=== PATIENT | male | born 1990 | race Caucasian/White ===

== ENCOUNTER 2017-12-02 10:35 | Emergency (ER) | payer MEDICAID, SELFPAY ==
[2017-12-02 10:46] VITALS: BP 113/62; PULSE 85; RESP 18; TEMP 36.6; O2SAT 100; BMI 25.8
[2017-12-02 10:56] LABS: UTC Strep Screen (Rapid) Negative (Negative)
--- NOTE | 2017-12-02 11:17 | HMH.EDUTC ---
[facility] [place] Clinical Impression: Upper respiratory infection Qualifiers: URI type: unspecified URI Qualified Code(s): J06.9 - Acute upper respiratory infection, unspecified Disposition: Home, Self-Care Condition on Discharge: Good Instructions: Sore Throat Additional Instructions: * Monitor Temp. Tylenol and/or Ibuprofen as needed. ER if fever is no less than 101 despite alternating Tylenol and Ibuprofen * Encourage fluids, water, Gatorade, powerade, pedialyte if /toddler/or child * Warm salt water gargles for throat irritation *Warm fluids *Sore throat lozenges *Sleep elevated *humidifier or vaporizer Lots of rest Increase fluids, water, Gatorade, powerade *Your throat swab was sent to lab for culture. Those results area typically sent to your primary care physician. Be sure to follow up in 2-3 days if no improvement so they can review those results and treat if necessary If you dont have primary care I recommend you get one, but in the mean time you will have to return to a walk in clinic Follow up IMMEDIATELY for new or worsening of symptoms OR no noticeable improvement over the next 48-72 hours. 911 immediately for any life threatening symptoms such as chest pain or difficulty breathing Prescriptions: Azithromycin [Z-Kenneth 250mg Tab] 250 mg PO UD DOSE PK #6 tab predniSONE [Prednisone 5mg Tab Dose-Pack] 5 mg PO UD DOSE PK #21 pack Forms: Work/School Release Time of Disposition: 11:39 Medical Decision Making - Medical Records Medical records reviewed: Yes: I reviewed the patient's medical records. - Jose Inquiry Pt receiving controlled substance: No Jose was queried for this patient: No Vital Signs: 12/02/17 10:46 Temperature 97.9 F Temperature Source Temporal Artery Scan Pulse Rate [Right] 85 Respiratory Rate 18 Blood Pressure [Right Arm] 113/62 Blood Pressure Mean [Right Arm] 79 Blood Pressure Source [Right Arm] Automatic Cuff Blood Pressure Position [Right Arm] Sitting 02 Sat by Pulse Oximetry 100 Oxygen Delivery Method Room Air - Lab Data Lab results reviewed: Yes: I reviewed the patient's lab results. Lab Results 12/02/17 10:50: Strep Scn Rapid Clinic Negative Orders (Tests/Meds): ORDERS Category Date Time Status Strep Screen Confirmation Stat Micro 12/02/17 10:50 Received [facility] [place] - General Stated complaint: Sore Throat Time Seen by Provider: 12/02/17 11:17 Mode of Arrival: Ambulatory Source of Information: Patient Limitations: No Limitations Description of Symptoms (Recalled from Triage Doc. by RN): SORE THROAT HEENT Symptoms (Recalled from RN notes): Yes Resp Symptoms (Recalled from RN notes): No Skin Symptoms (Recalled from RN notes): No MS Symptoms (Recalled from RN notes): No Functional Status (Recalled from RN notes): N - History of Present Illness Provider Complaint: Patient state that he has been having sore throat now for several days and thinks he may have strep throat State that he notice a white patchy area this morning on the left side of his throat and his father told him that he will do that with strep throat and he needed to be seen - Related Data Previous Rx's Medication Instructions Recorded Azithromycin [Z-Kenneth 250mg Tab] 250 mg PO UD DOSE PK #6 tab 12/02/17 predniSONE [Prednisone 5mg Tab 5 mg PO UD DOSE PK #21 pack 12/02/17 Dose-Pack] Allergies Allergy/AdvReac Type Severity Reaction Status Date / Time No Known Allergies Allergy Verified 12/02/17 10:50 - Worker's Comp Is this a Worker's Comp case?: No H History I have reviewed the patient's past medical history: Yes - Social History Smoking Status: Current every day smoker Tobacco Type: cigarettes Alcohol Intake: never - Psychiatric History Expresses thoughts of harming self/others: None Suicide Plan Description: No Plan ROS Obtained: Yes All systems reviewed & no additional complaints - ENT Ears, Nose, Mouth, and Throat: Reports sinus pa
--- NOTE | 2017-12-02 11:24 | ED_ITS ---
[facility] – [place] Disposition Clinical Impression: Upper respiratory infection Qualifiers: URI type: unspecified URI Qualified Code(s): J06.9 - Acute upper respiratory infection, unspecified Disposition: Home, Self-Care Condition on Discharge: Good Instructions: Sore Throat Additional Instructions: * Monitor Temp. Tylenol and/or Ibuprofen as needed. ER if fever is no less than 101 despite alternating Tylenol and Ibuprofen * Encourage fluids, water, Gatorade, powerade, pedialyte if /toddler/or child * Warm salt water gargles for throat irritation *Warm fluids *Sore throat lozenges *Sleep elevated *humidifier or vaporizer Lots of rest Increase fluids, water, Gatorade, powerade *Your throat swab was sent to lab for culture. Those results area typically sent to your primary care physician. Be sure to follow up in 2-3 days if no improvement so they can review those results and treat if necessary If you don? t have primary care I recommend you get one, but in the mean time you will have to return to a walk in clinic Follow up IMMEDIATELY for new or worsening of symptoms OR no noticeable improvement over the next 48-72 hours. 911 immediately for any life threatening symptoms such as chest pain or difficulty breathing Prescriptions: Azithromycin [Z-Kenneth 250mg Tab] 250 mg PO UD DOSE PK #6 tab predniSONE [Prednisone 5mg Tab Dose-Pack] 5 mg PO UD DOSE PK #21 pack Forms: Work/School Release Time of Disposition: 11:39 Medical Decision Making - Medical Records Medical records reviewed: Yes: I reviewed the patient's medical records. - Jose Inquiry Pt receiving controlled substance: No Jose was queried for this patient: No Vital Signs: 12/02/17 10:46 Temperature 97.9 F Temperature Source Temporal Artery Scan Pulse Rate [Right] 85 Respiratory Rate 18 Blood Pressure [Right Arm] 113/62 Blood Pressure Mean [Right Arm] 79 Blood Pressure Source [Right Arm] Automatic Cuff Blood Pressure Position [Right Arm] Sitting 02 Sat by Pulse Oximetry 100 Oxygen Delivery Method Room Air - Lab Data Lab results reviewed: Yes: I reviewed the patient's lab results. Lab Results 12/02/17 10:50: Strep Scn Rapid Clinic Negative Orders (Tests/Meds): ORDERS Category Date Time Status Strep Screen Confirmation Stat Micro 12/02/17 10:50 Received [facility] [place] HPI - General Stated complaint: Sore Throat Time Seen by Provider: 12/02/17 11:17 Mode of Arrival: Ambulatory Source of Information: Patient Limitations: No Limitations Description of Symptoms (Recalled from Triage Doc. by RN): SORE THROAT HEENT Symptoms (Recalled from RN notes): Yes Resp Symptoms (Recalled from RN notes): No Skin Symptoms (Recalled from RN notes): No MS Symptoms (Recalled from RN notes): No Functional Status (Recalled from RN notes): N - History of Present Illness Provider Complaint: Patient state that he has been having sore throat now for several days and thinks he may have strep throat State that he notice a white patchy area this morning on the left side of his throat and his father told him that he will do that with strep throat and he needed to be seen - Related Data Previous Rx's Medication Instructions Recorded Azithromycin [Z-Kenneth 250mg Tab] 250 mg PO UD DOSE PK #6 tab 12/02/17 predniSONE [Prednisone 5mg Tab 5 mg PO UD DOSE PK #21 pack 12/02/17 Dose-Pack]
[2017-12-02 11:46] VITALS: BP 113/62; PULSE 85; RESP 18; TEMP 36.6
== END 2017-12-02 11:47 | disposition home or self-care (01) ==
PROVIDERS: Emergency Provider Nurse Practitioner; Family Provider Internal Medicine Adolescent Medicine
DX: J06.9 Acute upper respiratory infection, unspecified (principal); F17.210 Nicotine dependence, cigarettes, uncomplicated
CPT/HCPCS: 87880; 99201

== ENCOUNTER 2018-02-04 14:49 | Outpatient (CLI) | payer MEDICAID, SELFPAY ==
--- NOTE | 2018-02-04 14:57 | XR_ITS ---
XR hand LT min 3V HISTORY: ITS.REASON: LT HAND PAIN ORDERING PHYSICIAN: Christine Gonzalez PATIENT AGE: 27 years COMPARISON: None FINDINGS: No fracture or dislocation. No lytic or blastic change. There is normal mineralization.. The joint spaces are well-preserved. No significant degenerative/arthritic changes. No erosive changes evident.. IMPRESSION: Negative, no acute finding
--- NOTE | 2018-02-04 14:57 | XR_ITS ---
XR wrist LT min 3V HISTORY ITS.REASON: LT WRIST PAIN ORDERING PHYSICIAN: Christine Gonzalez PATIENT AGE: 27 years Comparison: None FINDINGS: No fracture or dislocation. No lytic or blastic change. There is normal mineralization.. The joint spaces are well-preserved. No significant degenerative/arthritic changes. No erosive changes evident.. IMPRESSION: Negative wrist
--- NOTE | 2018-02-04 14:57 | XR_ITS ---
XR knee RT 3V HISTORY: ITS.REASON: RT ANTERIOR KNEE PAIN ORDERING PHYSICIAN: Christine Gonzalez PATIENT AGE: 27 years COMPARISON: FINDINGS: No fracture or dislocation. No lytic or blastic change. Normal mineralization. No significant arthritic changes evident. No other significant findings IMPRESSION: Negative Knee
--- NOTE | 2018-02-04 14:57 | XR_ITS ---
XR hand RT min 3V HISTORY: ITS.REASON: RT HAND PAIN ORDERING PHYSICIAN: Christine Gonzalez PATIENT AGE: 27 years COMPARISON: None FINDINGS: No fracture or dislocation. No lytic or blastic change. There is normal mineralization.. The joint spaces are well-preserved. No significant degenerative/arthritic changes. No erosive changes evident.. IMPRESSION: Negative, no acute finding
[2018-02-04 15:45] VITALS: BP 124/68; PULSE 69; RESP 20; TEMP 36.6; O2SAT 99
== END 2018-02-04 16:04 | disposition home or self-care (01) ==
LOC: LAB 14:52 → INF 14:54
PROVIDERS: PCP Nurse Practitioner Family; Visit Provider Nurse Practitioner Family
DX: M25.532 Pain in left wrist (principal); M79.641 Pain in right hand; M79.642 Pain in left hand; M25.561 Pain in right knee
CPT/HCPCS: 73110; 73130; 73562; 90715; 96372

== ENCOUNTER → 2021-04-27 12:42 | Outpatient (CLI) | payer OTHER, SELFPAY ==
--- NOTE | 2021-04-27 12:43 | CT_ITS ---
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 All CT scans at the facility use one or more dose reduction, viz: automated exposure control, ma/kV adjustment per patient size (including targeted exams where dose is matched to indication, i.e. head), or iterative reconstruction technique. FINDINGS: There is a CIGARETTE PACKING MACHINE OPERATOR shunt present in the right parietal region extending into the posterior aspect of the right lateral ventricle body. There are no previous exams available for comparison. There is mild prominence of the lateral ventricles including the temporal horns. The 3rd and 4th ventricle has an unremarkable appearance. 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 No midline shift or mass effect. No acute intracranial hemorrhage. No mastoid effusion. There is mild mucosal thickening of the ethmoid sinuses IMPRESSION: Right CIGARETTE PACKING MACHINE OPERATOR shunt in place. 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 No previous studies available for comparison. Agenesis of the corpus callosum. Dictated by: Chip Mason MD 04/27/2021 18:01 Chip Mason MD in [place] 04/27/2021 18:01
== END ==
PROVIDERS: PCP Internal Medicine Adolescent Medicine; Visit Provider Specialist
DX: R41.3 Other amnesia (principal); Z98.2 Presence of cerebrospinal fluid drainage device
CPT/HCPCS: 70450

== ENCOUNTER → 2021-04-28 12:14 | Outpatient (CLI) | payer OTHER, SELFPAY ==
[2021-04-28 12:48] LABS: Basophils # 0.1 K/mm3 (0-0.2); Basophils % 0.9 % (0.1-2.0); Eosinophils # 0.5 K/mm3 (0.0-0.4); Eosinophils % 5.6 % (0.1-12.0); Hematocrit 47.1 % (42.0-52.0); Hemoglobin 16.1 g/dL (14.1-18.0); Lymphocytes # 1.9 K/mm3 (0.7-4.5); Lymphocytes % 21.4 % (10-50); Mean Corpuscular HGB Conc 34.2 g/dL (31.8-35.4); Mean Corpuscular Hemoglobin 30.8 pg (27.0-31.2); Mean Corpuscular Volume 89.9 fl (80-94); Mean Platelet Volume 8.7 fl (7.4-10.4); Monocytes # 0.4 K/mm3 (0.1-1.0); Monocytes % 4.6 % (1.7-9.3); Neutrophils # 6.1 K/mm3 (1.8-7.8); Neutrophils % 67.5 % (37.0-80.0); Platelet Count 230 K/mm3 (142-424); Red Blood Count 5.23 M/mm3 (4.60-6.20); Red Cell Distribution Width 13.1 % (11.5-17.5); White Blood Count 9.1 K/mm3 (4.8-10.8)
[2021-04-28 13:32] LABS: Erythrocyte Sedimentation Rate 4 mm/hr (0-15)
[2021-04-28 13:37] LABS: Alanine Aminotransferase 39 U/L (12-78); Albumin Level 4.4 g/dl (3.5-5.0); Albumin/Globulin Ratio 1.6 (1.1-1.8); Alkaline Phosphatase 82 U/L (38-126); Anion Gap 13.9 mEq/L (5-15); Aspartate Amino Transferase 34 U/L (17-59); Bilirubin,Total 0.5 mg/dl (0.2-1.3); Blood Urea Nitrogen 22 mg/dl (9-20); Calcium 9.2 mg/dl (8.4-10.2); Carbon Dioxide 23 mmol/L (22.0-30.0); Chloride 107 mmol/L (98-107); Estimated Glomerular Filt Rate 79 ml/min (>60); GFR (African American) 95 ML/MIN (>60); Globulin 2.7 g/dL (1.3-3.2); Glucose 124 mg/dl (74-100); Potassium 3.9 mmoL/L (3.5-5.1); Sodium 140 mmol/L (136-145); Total Protein,Serum 7.1 g/dl (6.3-8.2)
[2021-04-28 14:47] LABS: Folate 7.02 ng/mL
[2021-04-29 21:04] LABS: Anti-Centromere B Antibodies <0.2 AI (0.0-0.9); Anti-DNA (DS) Ab Qn <1 IU/mL (0-9); Anti-Jo-1 <0.2 AI (0.0-0.9); Anti-Smith Antibody <0.2 AI (0.0-0.9); Antichromatin Antibodies <0.2 AI (0.0-0.9); Antiscleroderma-70 Antibodies <0.2 AI (0.0-0.9); RNP Antibodies <0.2 AI (0.0-0.9); Sjogren's Anti-SS-A <0.2 AI (0.0-0.9); Sjogren's Anti-SS-B <0.2 AI (0.0-0.9)
[2021-05-16 10:47] LABS: Antinuclear Antibodies (ANA) NEGATIVE
== END ==
PROVIDERS: Visit Provider Specialist
DX: R41.3 Other amnesia (principal); Z98.2 Presence of cerebrospinal fluid drainage device
CPT/HCPCS: 36415; 80053; 82746; 84443; 85025; 85651; 86038; 86225; 86235; 94762

== ENCOUNTER → 2021-05-29 11:24 | Outpatient (CLI) | payer OTHER, SELFPAY | PROVIDERS: PCP Internal Medicine Adolescent Medicine; Visit Provider Nurse Practitioner | DX: Z20.822 Contact with and (suspected) exposure to COVID-19 (principal) | CPT/HCPCS: C9803; U0003; U0005 ==

== ENCOUNTER 2021-06-22 11:00 | Outpatient (RCR) | payer OTHER, SELFPAY ==
--- NOTE | 2021-05-11 14:07 | HMH.SLAPHASI ---
Speech & Language Evaluation Speech/Language Aphasia Evaluation Start: 05/11/21 13:51 Freq: once Status: Complete Protocol: Document 05/11/21 13:51 JORGE (Rec: 05/11/21 14:07 JORGE [id number]) Aphasia Assessment/Goals/Plan Assessment Date of Evaluation: 05/11/21 Evaluation Type Initial Certification Assessment/Problems Short term memory difficulties Does Patient Qualify for Service Yes Qualify/Failure Comment Based on evaluation results, Joce has difficulty with short term memory, auditory comprehension at paragraph level, reading comprehension at the paragraph level, and deductive reasoning. Plan Pt will be seen # times/week 1 for # weeks 8 Anticipate reaching STG in # weeks 4 Anticipate reaching LTG in # weeks 8 Pt/Guardian verbally ack understanding Yes of dx/prognosis/goals G -code Required No STG-Auditory Comprehension Paragraph Level 90 STG-Reading Comprehension Reading Paragraphs & Ans Questions 90 STG-Attending/Orientation/Memory Delayed Recall 90 Memory Recall 90 STG-Comparative/Linguistic Skills Categorization Ability 90 STG-Divergent Thinking Deductive Reasoning 90 Penitentiary Goals Increase auditory comprehension skills Yes to communicate w/family & friends Increase cognitive skills to communicate Yes w/family & friends Aphasia Evaluations Communication Speech Intelligibility Joce exhibits a mild stutter . Auditory Comprehension Yes: Word Level Sentences Following Directions Conversation No: Paragraph Reading Comprehension Yes: Letter Naming Word Naming Sentences No: Paragraphs Verbal Expressive Language Yes: Automatic Speech Completing Sentences Repetition Abilities Word Level Naming Naming Actions/Objects Sentence Level Defining Words Written Language Yes: Signature Copy Shapes Copy Words Check Writing Sentence Writing Attending/Orientation/Memory
== END 2021-06-22 11:05 | disposition home or self-care (01) ==
LOC: ST 11:00
PROVIDERS: Visit Provider Nurse Practitioner Family
DX: R41.3 Other amnesia (principal); G91.9 Hydrocephalus, unspecified; Z92.89 Personal history of other medical treatment
CPT/HCPCS: 92523; 97129; 97130

== ENCOUNTER → 2021-09-15 09:34 | Outpatient (CLI) | payer OTHER, SELFPAY | PROVIDERS: PCP Internal Medicine Adolescent Medicine; Visit Provider Nurse Practitioner Family | DX: Z20.822 Contact with and (suspected) exposure to COVID-19 (principal) | CPT/HCPCS: C9803; U0003; U0005 ==

== ENCOUNTER → 2022-05-09 12:43 | Outpatient (CLI) | payer OTHER, SELFPAY ==
--- NOTE | 2022-05-09 12:45 | CT_ITS ---
FINAL REPORT TECHNIQUE: Axial CT images were performed through the head. Coronal reformatted images were submitted. This study was performed with techniques to keep radiation doses as low as reasonably achievable (ALARA). Individualized dose reduction techniques using automated exposure control or adjustment of mA and/or kV according to the patient's size were employed. 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 Shunt terminates in the posterior right lateral ventricle. Ventricles have an unusual configuration and are moderately dilated. The overall appearance is identical to that seen on the prior exam from 2020. There is no evidence of acute hemorrhage, mass effect, or edema. Mild lobular mucoperiosteal thickening is seen in the ethmoid air cells. IMPRESSION: 1. Stable right anterior parietal intraventricular shunt and stable ventriculomegaly. Authenticated and ERN
== END ==
PROVIDERS: PCP Internal Medicine Adolescent Medicine; Visit Provider Nurse Practitioner Family
DX: R41.3 Other amnesia (principal); G91.9 Hydrocephalus, unspecified; Z92.89 Personal history of other medical treatment
CPT/HCPCS: 70450

== ENCOUNTER → 2022-05-31 10:14 | Outpatient (CLI) | payer OTHER, SELFPAY ==
[2022-05-31 12:19] LABS: Vitamin B12 574 pg/mL (239-931)
== END ==
PROVIDERS: PCP Internal Medicine Adolescent Medicine; Visit Provider Nurse Practitioner Family
DX: R41.3 Other amnesia (principal)
CPT/HCPCS: 36415; 82607

== ENCOUNTER 2022-08-19 10:00 | Emergency (ER) | payer OTHER, SELFPAY ==
[2022-08-19 10:01] VITALS: BP 151/88; PULSE 97; RESP 18; TEMP 36.5; O2SAT 98; BMI 26.6
--- NOTE | 2022-08-19 10:04 | PC.NURSE ---
PT PLACED IN GOWN AND PROVIDED WARM BLANKET FOR ASSESSMENT
--- NOTE | 2022-08-19 10:05 | PC.NURSE ---
DR. METZ AT BEDSIDE FOR ASSESSMENT, RN AND PT'S MOTHER AT BEDSIDE
[2022-08-19 11:02] VITALS: BP 91/37; PULSE 91; O2SAT 98
--- NOTE | 2022-08-19 11:05 | PC.NURSE ---
1105 MADE AWARE OF BLOOD PRESSURE
[2022-08-19 11:12] VITALS: BP 121/73; PULSE 92; RESP 17; O2SAT 98
--- NOTE | 2022-08-19 11:14 | PC.NURSE ---
MANUAL BLOOD PRESSURE 110/62 BLOOD PRESSURE CUFF ADJUSTED, REPEAT B/P 121/73 AT THIS TIME
--- NOTE | 2022-08-19 11:15 | PC.NURSE ---
VERBAL ORDER RECEIVED TO HOLD IVF'S AT THIS TIME PER DR. METZ AFTER REPEAT B/P
[2022-08-19 11:22] LABS: Basophils # 0.1 K/mm3 (0-0.2); Basophils % 0.9 % (0.1-2.0); Eosinophils # 0.3 K/mm3 (0.0-0.4); Eosinophils % 2.1 % (0.1-12.0); Hematocrit 47.8 % (42.0-52.0); Lymphocytes # 1.4 K/mm3 (0.7-4.5); Lymphocytes % 10.1 % (10-50); Mean Corpuscular HGB Conc 33.4 g/dL (31.8-35.4); Mean Corpuscular Hemoglobin 30.2 pg (27.0-31.2); Mean Corpuscular Volume 90.3 fl (80-94); Mean Platelet Volume 8.2 fl (7.4-10.4); Monocytes % 7.6 % (1.7-9.3); Neutrophils # 10.6 K/mm3 (1.8-7.8); Neutrophils % 79.3 % (37.0-80.0); Platelet Count 245 K/mm3 (142-424); Red Blood Count 5.29 M/mm3 (4.60-6.20); Red Cell Distribution Width 12.5 % (11.5-17.5); White Blood Count 13.3 K/mm3 (4.8-10.8)
[2022-08-19 11:27] LABS: Chloride 98 mmol/L (98-107); Sodium 134 mmol/L (136-145)
[2022-08-19 11:28] LABS: Potassium 4.1 mmoL/L (3.5-5.1)
[2022-08-19 11:30] VITALS: BP 112/70; PULSE 98; O2SAT 97
[2022-08-19 11:30] LABS: Alanine Aminotransferase 18 U/L (12-78); Albumin Level 4.4 g/dl (3.5-5.0); Albumin/Globulin Ratio 1.3 (1.1-1.8); Alkaline Phosphatase 117 U/L (38-126); Anion Gap 7.1 mEq/L (5-15); Aspartate Amino Transferase 23 U/L (17-59); Bilirubin,Total 0.5 mg/dl (0.2-1.3); Blood Urea Nitrogen 19 mg/dl (9-20); Carbon Dioxide 33 mmol/L (22.0-30.0); Creatinine Clearance Estimated 112 mL/min (50-200); Estimated Glomerular Filt Rate 78 ml/min (>60); GFR (African American) 94 ML/MIN (>60); Globulin 3.3 g/dL (1.3-3.2); Total Protein,Serum 7.7 g/dl (6.3-8.2)
[2022-08-19 11:31] LABS: Calcium 9.9 mg/dl (8.4-10.2); Glucose 84 mg/dl (74-100)
--- NOTE | 2022-08-19 11:35 | HMH.EDSKAF ---
Discharge Plan Disposition Patient Disposition: Home, Self-Care Condition: Good Prescriptions Prescriptions: New sulfamethoxazole-trimethoprim [Bactrim DS] 800-160 mg tablet 1 tab PO BID 14 Days Qty: 28 0RF Referrals Follow up/Referrals: Brandan Smith MD [Primary Care Provider] - See instructions Activity Restrictions/Add. Instructions Additional Instructions/Restrictions: Please follow up with your primary care physician in 1-2 days due to concern for gluteal cleft abscess. Please take antibiotic as prescribed. Keep wound clean and dry. Please return for any concerning symptoms such as bleeding, worsening pain or any other concerns. Clinical Impressions Clinical Impression: Abscess of gluteal cleft Instructions Patient Instructions: DI for Incision and Drainage of a Skin Abscess Print Language Print Language: Mohawk Discharge ED Provider: Joana Mcdonald Skin/Abscess/FB HPI General Chief complaint: Skin/Abscess/Foreign Body Stated complaint: fever, possible anal abccess Time Seen by Provider: 08/19/22 11:00 Mode of Arrival: Ambulatory Source of Information: Patient and Parent(s) Limitations: No Limitations Description of Symptoms (Recalled from ER Triage Doc. by RN): PT AND MOTHER REPORTS FEVER AND RED PAINFUL AREA TO LEFT SIDE OF BUTTOCKS SINCE SATURDAY History of Present Illness HPI narrative: Yanni is a 32 yo male presenting to the emergency department for red painful spot on the left side of buttock. Symptom onset . Patient denies any inciting trauma. no fevers, N/V or other systemic signs of infection. No purulent or bloody drainage from wound. Reports no prior history of symptoms. Patient reports symptoms exacerbated when he sits on his bottom. complaint: abscess/boil Onset (ago): day(s) Tetanus up to date: yes Location: buttocks Severity: severe Severity scale (1-10): 10 Quality: burning Consistency: constant Relieving factors: none Exacerbating factors: none Associated symptoms: denies other symptoms Related Data Previous Rx's Medication Instructions Recorded sulfamethoxazole 800 1 tab PO BID 14 days #28 tabs 08/19/22 mg-trimethoprim 160 mg tablet (Bactrim DS) Allergies Allergy/AdvReac Type Severity Reaction Status Date / Time No Known Allergies Allergy Verified 05/31/22 09:53 [facility] Disclaimer: The information contained in this section may have been updated after the patient was seen, as this information can be updated by other users. Surgical History H/O ventricular shunt Family History Other No significant family history Social History Smoking Status: Current every day smoker tobacco type: cigarettes alcohol intake: never substance use type: denies use current occupational status: employed Travel in the last 8 weeks: None household members: none housing: apartment ROS Obtained: Yes All systems reviewed & no additional complaints except as documented Physical Exam General General appearance: alert and in no apparent distress Head Head exam: atraumatic Eye Eye exam: Present normal appearance and EOMI ENT ENT exam: Present normal exam, normal oropharynx and mucous membranes moist Neck Neck exam: Present normal inspection Chest Chest inspection: Present normal inspection and symmetric chest wall rise Respiratory Respiratory exam: Present normal lung sounds bilaterally Cardiovascular Cardiovascular exam: Present regular rate and normal heart sounds Abdominal Exam Abdominal exam: Present soft and normal bowel sounds exam: Present other (Large indurated mass left gluteal fold ) Extremities Exam Extremities exam: Present normal inspection and full ROM Back Exam Back exam: Present normal inspection and full ROM Neurological Exam Neurological exam: Present alert and orie
[2022-08-19 11:36] LABS: C-Reactive Protein 138.5 mg/L (0-4)
--- NOTE | 2022-08-19 11:46 | PC.WOUNDNOTE ---
pt had explosive diarrhea and was lying in his bed, pt walked to the restroom and i got stuff so he could clean himself
[2022-08-19 12:03] VITALS: BP 134/79; PULSE 93; RESP 17; O2SAT 98
[2022-08-19 12:05] VITALS: BP 134/79; PULSE 93; RESP 17; TEMP 37; O2SAT 98
[2022-08-19 12:06] LABS: Erythrocyte Sedimentation Rate 1 mm/hr (0-15)
--- NOTE | 2022-08-19 12:06 | PC.NURSE ---
DR. METZ AT BEDSIDE TO UPDATE PT AND FAMILY ON POC AND DISCHARGE
== END 2022-08-19 12:05 | disposition home or self-care (01) ==
PROVIDERS: Emergency Provider Student in an Organized Health Care Education/Training Program; PCP Internal Medicine Adolescent Medicine
DX: L02.31 Cutaneous abscess of buttock (principal)
CPT/HCPCS: 10060; 80053; 85025; 85651; 86140; 99283

== ENCOUNTER 2023-09-20 09:28 | Emergency (ER) | payer OTHER, SELFPAY ==
--- NOTE | 2023-09-20 09:25 | CT_ITS ---
FINAL REPORT TECHNIQUE: Axial CT images of the face were obtained without contrast. Coronal and sagittal reformatted images were also obtained. This study was performed with techniques to keep radiation doses as low as reasonably achievable, (ALARA). Individualized dose reduction techniques using automated exposure control or adjustment of mA and/or kV according to the patient's size were employed. CLINICAL HISTORY: fall, laceration below lip COMPARISON: None FINDINGS: There is a fracture of the distal aspect of the right nasal bone with mild inward displacement. There is adjacent soft tissue swelling and air in this region. The orbits are intact.The globes are intact. There is mucosal thickening in multiple paranasal sinuses. No soft tissue mass is seen. IMPRESSION: Fracture of the distal aspect of the right nasal bone with mild inward displacement. Adjacent soft tissue swelling and subcutaneous air is present as well. Mucosal thickening in multiple paranasal sinuses. Reviewed, Interpreted and Dictated by Kendrick Henriquez III, MD Transcribed by Gladys Watson Authenticated and [facility]
--- NOTE | 2023-09-20 09:25 | CT_ITS ---
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 Coronal and sagittal reformatted images were also obtained.This study was performed with techniques to keep radiation doses as low as reasonably achievable (ALARA). Individualized dose reduction techniques using automated exposure control or adjustment of mA and/or kV according to the patient's size were employed. There is no evidence of intracranial hemorrhage or mass. There is a right-sided ventriculoperitoneal shunt present. There is mild to moderate ventriculomegaly, which is stable since the prior CT of 2021. There is no evidence of shift of the midline structures. No abnormal extra axial fluid collection is identified. No skull abnormality is seen on the bone window images. IMPRESSION: Right sided ventriculoperitoneal shunt, with mild to moderate ventriculomegaly, stable since the prior CT of 2021. No acute intracranial abnormality is identified. Reviewed, Interpreted and Dictated by Kendrick Henriquez III, MD Transcribed by Gladys Watson Authenticated and [facility]
--- NOTE | 2023-09-20 09:27 | XR_ITS ---
FINAL REPORT CLINICAL HISTORY: syncope COMPARISON: None FINDINGS: A single portable view of the chest was obtained. The heart size and pulmonary vascularity are within normal limits. The mediastinum is within normal limits. No acute pulmonary abnormality is identified. The bony thorax is intact. IMPRESSION: No active cardiopulmonary disease. Reviewed, Interpreted and Dictated by Kendrick Henriquez III, MD Transcribed by Gladys Watson Authenticated and . [facility]
--- NOTE | 2023-09-20 09:27 | HMH.EDGENADL ---
Discharge Plan Disposition Patient Disposition: Home, Self-Care Prescriptions Prescriptions: No Action sulfamethoxazole-trimethoprim [Bactrim DS] 800-160 mg tablet 1 tab PO BID 14 Days Qty: 28 0RF Referrals Follow up/Referrals: Brandan Smith MD [Primary Care Provider] - See instructions Activity Restrictions/Add. Instructions Additional Instructions/Restrictions: At this time it was felt you are safe to be discharged home. If new or worsening symptoms please do not hesitate to return the emergency department. If symptoms persist please follow-up with your family doctor as you are able. Please buy phenylephrine nose spray and administer 3 times a day over the next 3 to 4 days for your nasal swelling., do not use any longer than this. Please follow-up with your family doctor in 10 days for removal of your sutures and assessment of your nasal symptoms. Clinical Impressions Clinical Impression: Vasovagal syncope, Closed fracture nasal bone, S/P PRICING/SIGNAGE TEAM MEMBER shunt Instructions Patient Instructions: DI for Syncope in Adults (Fainting), DI for Syncope in Children (Fainting) Discharge ED Provider: Bulmaro Kaminski General Adult HPI General Chief complaint: Syncope Stated complaint: syncope Time Seen by Provider: 09/20/23 09:34 History of Present Illness HPI narrative: Patient is a 33-year-old male with past medical history of PRICING/SIGNAGE TEAM MEMBER shunt of childhood that has never had complications who presents emergency department for evaluation of syncope. History obtained by patient at bedside. 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 Last Tdap unknown. He has a cut below his lower lip. Denies pain. No vomiting. No other acute complaints at this time. Related Data Previous Rx's Medication Instructions Recorded sulfamethoxazole 800 1 tab PO BID 14 days #28 tabs 08/19/22 mg-trimethoprim 160 mg tablet (Bactrim DS) Allergies Allergy/AdvReac Type Severity Reaction Status Date / Time No Known Allergies Allergy Verified 05/31/22 09:53 [facility] Disclaimer: The information contained in this section may have been updated after the patient was seen, as this information can be updated by other users. Surgical History H/O ventricular shunt Family History Other No significant family history Social History Smoking Status: Current every day smoker tobacco type: cigarettes alcohol intake: never substance use type: denies use current occupational status: employed Travel in the last 8 weeks: None household members: none housing: apartment ROS Obtained: Yes Systems reviewed as appropriate & no additional complaints except as documented Physical Exam General General appearance: alert and in no apparent distress Head Head exam: normocephalic and other (0.5 cm linear laceration inferior to the lower lip that is hemostatic.) Eye Eye exam: Present PERRL and EOMI ENT ENT exam: Present mucous membranes moist and other (No traumatic dentition) Neck Neck exam: Present normal inspection and full ROM; Absent tenderness Chest Chest inspection: Present normal inspection and symmetric chest wall rise Respiratory Respiratory exam: Present normal lung sounds bilaterally; Absent respiratory distress Cardiovascular Cardiovascular exam: Present regular rate and normal rhythm Abdominal Exam Abdominal exam: Present soft; Absent tenderness Extremities Exam Extremities exam: Present normal inspection Neurological Exam Neurological exam: Present alert and CN II-XII intact; Absent motor sensory deficit Psychiatric Psychiatric exam: Present normal affect Skin Skin exam: Present warm and dry Medical Decision Making Jose Inquiry Pt receiving controlled substance: No Vital Signs: 09/20/23 09:28 09/20/23 09:39 09/20/23 09:42 Temperature 97.9 F Temperature Source Oral Pulse Rate 92 H 82 Pulse Rate [Apical] 80 Respiratory Rate 18 Blood Pressure 129/87 128/77 Blood Pressure [Right Arm] 129/81 Blood Pressure Mean [Right Arm] 97 Blood Pressure Source [Right Arm] Automatic Cuff Blood Pressure Position [Right Arm] Sitting 02 Sat by Pulse Oximetry 98 100 100 Oxygen Delivery Method Room Air Room Air 09/20/23 11:05 Temperature Temperature Source Pulse Rate 86 Pulse Rate [Apical] Respiratory Rate Blood Pressure 115/76 Blood Pressure [Right Arm] Blood Pressure Mean [Right Arm] Blood Pressure Source [Right Arm] Blood Pressure Position [Right Arm] 02 Sat by Pulse Oximetry 100 Oxygen Delivery Method Lab Data Lab Results 09/20/23 09:31: WBC 4.9, RBC 5.19, Hgb 15.8, Hct 46.9, MCV 90.4, MCH 30.5, MCHC 33.7, RDW 12.5, Plt Count 176, MPV 8.9, Neut % (Auto) 54.2, Lymph % (Auto) 32.5, Evangeline % (Auto) 5.0, Eos % (Auto) 7.6, Baso % (Auto) 0.6, Neut # (Auto) 2.7, Lymph # (Auto) 1.6, Evangeline # (Auto) 0.2, Eos # (Auto) 0.4, Baso # (Auto) 0.0, Sodium 136, Potassium 3.2 L, Chloride 100, Carbon Dioxide 25, Anion Gap 14.2, BUN 18, Creatinine 1.30 H, Estimated Creat Clear 94, Estimated GFR 64, Est GFR ( Amer) 77, Glucose 116 H, Calcium 8.4, Magnesium 2.1, Total Bilirubin 0.7, AST 44, ALT 31, Alkaline Phosphatase 78, Total Protein 7.1, Albumin 4.3, Globulin 2.8, Albumin/Globulin Ratio 1.5 09/20/23 09:31 09/20/23 09:31 Orders (Tests/Meds): ED MEDICATIONS Discontinued Medications Generic Name Dose Route Start Last Admin Trade Name Freq PRN Reason Stop Dose Admin Cocaine HCl 1 ml 09/20/23 10:15 09/20/23 10:27 Cocaine 4% Topical Soln 4ml Bottle TP 09/20/23 10:16 1 ml ONCE ONE Administration Epinephrine HCl 1 mg 09/20/23 10:15 09/20/23 10:26 Epinephrine 1 Mg/Ml Ampul TOPICAL 09/20/23 10:16 1 mg ONCE ONE Administration Epinephrine HCl 1 mg 09/20/23 10:15 09/20/23 10:39 Epinephrine 1 Mg/Ml Ampul TP 09/20/23 10:16 Not Given ONCE ONE Lactated Ringer's 1,000 mls @ 999 mls/hr 09/20/23 09:25 09/20/23 09:58 Lactated Ringer's 1000 Ml Bag IV 09/20/23 10:25 999 mls/hr .Q1H1M ONE Administration Lidocaine HCl 1 ml 09/20/23 10:15 09/20/23 10:26 Lidocaine 2% Urojet 10ml TP 09/20/23 10:16 1 ml ONCE ONE Administration Potassium Chloride 40 meq 09/20/23 11:17 09/20/23 11:20 Potassium Chloride 20meq Tab PO 09/20/23 11:18 40 meq ONCE ONE Administration Tetanus/Reduced Diphtheria/Acell Pertussis 0.5 ml 09/20/23 09:25 09/20/23 10:00 Tet/Diphth/Pert-Adult 0.5ml Syringe IM 09/20/23 09:26 0.5 ml .ONCE ONE Administration ORDERS Category Date Time Status CT facial bones wo con Stat Cat Scan 09/20/23 09:[address] head/brain wo con Stat Cat Scan 09/20/23 09:25 Completed CXR --portable [XR chest portable] Stat Exams 09/20/23 09:27 Completed CBC w/Auto Diff [Complete Blood Count Auto Diff] Stat Lab 09/20/23 09:31 Completed CMP [Comprehensive Metabolic Panel] Stat Lab 09/20/23 09:31 Completed MG [Magnesium] Stat Lab 09/20/23 09:31 Completed EKG Request [ECG Request] Stat Y 09/20/23 09:25 Ordered ECG Data Tracing #1: Independently interpreted by me, rate is 80, rhythm is regular, axis is normal, no ST elevation in anatomical contiguous leads, QTc 414, no evidence of LVH, no delta wave, no shortened SC interval, no Brugada. Medical Decision Narrative: In summary patient is a 33-year-old male with past medical history described above presents emergency department for evaluation of syncope. Given history and physical with rapid return to baseline I suspect that patient had an episode of vasovagal syncope given that he was cold outside, sitting at the table warming up and rapidly deepti from a seated position. Differential also includes cardiogenic syncope, electrolyte abnormality, intracranial hemorrhage, facial fracture, among others. Workup will be conducted with hematologic labs, noncontrasted CT scan of the head and facial bones. Patient C-spine is cleared clinically per [place] guidelines. EKG will be obtained. Initial inventions include crystalloid bolus. Tdap will be updated. LAC will be applied to the laceration. Interval history is provided by mother. 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 Patient had his shunt revised at age 2 year however has not had any trouble since. Workup reviewed by me, hematologic labs are remarkable for mild hypokalemia which will be repleted orally, no ROGERS per rifle criteria. CT imaging shows stable PRICING/SIGNAGE TEAM MEMBER shunt, fracture of the right nasal bone, no septal hematoma that would require emergent drainage at this time. Patient was ambulatory at bedside. Given this patient is appropriate for discharge at this time and was given return precautions. Procedure: Procedure performed was laceration repair. Procedure performed by Bulmaro Kaminski. Laceration location was inferior to lower lip on the chin. Topical lidocaine was applied with moderate effect. Wound was repaired with 5-0 Prolene suture in a simple interrupted fashion after cleaning with sterile water and Hibiclens. Number of sutures was 2. Patient tolerated procedure well. There were no immediate complications. Critical Care Critical Care Time Critical Care Time: No
[2023-09-20 09:28] VITALS: BP 129/81; PULSE 80; RESP 18; TEMP 36.6; O2SAT 98; BMI 26.6
--- NOTE | 2023-09-20 09:28 | ECG_ITS ---
APPROVED REPORT Exam: Resting ECG HR:80 bpm ECG Measurements Heart Rate 80 AXES SD 144 P 65 QRSd 98 QRS 68 QT 377 T 52 QTc 414 Conclusion SINUS RHYTHM NORMAL ECG UNCONFIRMED REPORT Electronically signed by : Brandan Smith MD 09/21/2023 10:07:22
[2023-09-20 09:39] VITALS: BP 129/87; PULSE 92; O2SAT 100
[2023-09-20 09:42] VITALS: BP 128/77; PULSE 82; O2SAT 100
[2023-09-20 09:54] LABS: Chloride 100 mmol/L (98-107)
[2023-09-20 09:55] LABS: Basophils % 0.6 % (0.1-2.0); Eosinophils # 0.4 K/mm3 (0.0-0.4); Eosinophils % 7.6 % (0.1-12.0); Hematocrit 46.9 % (42.0-52.0); Hemoglobin 15.8 g/dL (14.1-18.0); Lymphocytes # 1.6 K/mm3 (0.7-4.5); Lymphocytes % 32.5 % (10-50); Mean Corpuscular HGB Conc 33.7 g/dL (31.8-35.4); Mean Corpuscular Hemoglobin 30.5 pg (27.0-31.2); Mean Corpuscular Volume 90.4 fl (80-94); Mean Platelet Volume 8.9 fl (7.4-10.4); Monocytes # 0.2 K/mm3 (0.1-1.0); Neutrophils # 2.7 K/mm3 (1.8-7.8); Neutrophils % 54.2 % (37.0-80.0); Platelet Count 176 K/mm3 (142-424); Potassium 3.2 mmoL/L (3.5-5.1); Red Blood Count 5.19 M/mm3 (4.60-6.20); Red Cell Distribution Width 12.5 % (11.5-17.5); Sodium 136 mmol/L (136-145); White Blood Count 4.9 K/mm3 (4.8-10.8)
[2023-09-20 09:57] LABS: Alanine Aminotransferase 31 U/L (12-78); Alkaline Phosphatase 78 U/L (38-126); Aspartate Amino Transferase 44 U/L (17-59); Bilirubin,Total 0.7 mg/dl (0.2-1.3); Blood Urea Nitrogen 18 mg/dl (9-20); Creatinine Clearance Estimated 94 mL/min (50-200); Estimated Glomerular Filt Rate 64 ml/min (>60); GFR (African American) 77 ML/MIN (>60)
[2023-09-20 09:58] LABS: Albumin Level 4.3 g/dl (3.5-5.0); Albumin/Globulin Ratio 1.5 (1.1-1.8); Calcium 8.4 mg/dl (8.4-10.2); Globulin 2.8 g/dL (1.3-3.2); Glucose 116 mg/dl (74-100); Magnesium 2.1 mg/dl (1.6-2.3); Total Protein,Serum 7.1 g/dl (6.3-8.2)
[2023-09-20] MEDS: LACTATED RINGERS 1000ML 1,000 ML 999 ML IV (09:58)
[2023-09-20] MEDS: TET/DIPHTH/PERT-ADULT 0.5ML SYRINGE 0.5 ML IM (10:00)
[2023-09-20] MEDS: LIDOCAINE 2% UROJET 10ML TP (10:26)
[2023-09-20] MEDS: EPINEPHrine 1 MG/ML AMPUL TOPICAL (10:26)
[2023-09-20] MEDS: COCAINE 4% TOPICAL SOLN 4ML BOTTLE 1 ML TP (10:27)
[2023-09-20 11:05] VITALS: BP 115/76; PULSE 86; O2SAT 100
[2023-09-20 11:15] LABS: Anion Gap 14.2 mEq/L (5-15); Carbon Dioxide 25 mmol/L (22.0-30.0)
--- NOTE | 2023-09-20 11:17 | PC.NURSE ---
DR AKHTAR AT BEDSIDE TO UPDATE PT
[2023-09-20] MEDS: POTASSIUM CHLORIDE 20MEQ TAB 40 MEQ PO (11:20)
[2023-09-20 11:35] VITALS: BP 125/76; PULSE 84; RESP 18; TEMP 36.7; O2SAT 98
== END 2023-09-20 11:35 | disposition home or self-care (01) ==
PROVIDERS: Emergency Provider Emergency Medicine; PCP Internal Medicine Adolescent Medicine
DX: R55 Syncope and collapse (principal); S02.2XXA Fracture of nasal bones, initial encounter for closed fracture; F17.210 Nicotine dependence, cigarettes, uncomplicated; Z98.2 Presence of cerebrospinal fluid drainage device; W18.30XA Fall on same level, unspecified, initial encounter; S01.511A Laceration without foreign body of lip, initial encounter; E87.6 Hypokalemia
CPT/HCPCS: 12011; 70450; 70486; 71045; 80053; 83735; 85025; 90471; 90715; 93005; 96360; 99285

== ENCOUNTER 2023-10-29 10:38 | Outpatient (CLI) | payer OTHER, SELFPAY | END 2023-10-29 23:59 | LOC: RT 10:39 | PROVIDERS: PCP Internal Medicine Adolescent Medicine; Visit Provider Physician Assistant | DX: R55 Syncope and collapse (principal); Z98.2 Presence of cerebrospinal fluid drainage device | CPT/HCPCS: 93270 ==

== ENCOUNTER 2023-11-07 08:38 | Outpatient (CLI) | payer OTHER, SELFPAY ==
[2023-11-07 10:25] LABS: Alanine Aminotransferase 23 U/L (12-78); Albumin Level 4.3 g/dl (3.5-5.0); Alkaline Phosphatase 90 U/L (38-126); Aspartate Amino Transferase 32 U/L (17-59); Bilirubin,Direct 0.1 mg/dl (0.0-0.4); Bilirubin,Indirect 0.4 mg/dL (0.0-0.9); Bilirubin,Total 0.5 mg/dl (0.2-1.3); Bilirubin,Unconjugated 0.4 mg/dL (0.0-1.1); Chol/HDL Ratio 5.9 (1-3.5); Cholesterol 189 mg/dl (140-200); HDL Cholesterol 32 mg/dl (40-60); Triglycerides 169 mg/dl (30-150); VLDL Cholesterol 34 mg/dL (0-40)
[2023-11-07 10:36] LABS: Direct LDL Cholesterol 115.38 mg/dL (100-129)
== END 2023-11-07 23:59 ==
LOC: LAB 08:39
PROVIDERS: PCP Internal Medicine Adolescent Medicine; Visit Provider Physician Assistant
DX: I11.9 Hypertensive heart disease without heart failure (principal); R55 Syncope and collapse; Z98.2 Presence of cerebrospinal fluid drainage device; F17.210 Nicotine dependence, cigarettes, uncomplicated
CPT/HCPCS: 36415; 80061; 80076

== ENCOUNTER 2023-11-14 08:37 | Outpatient (CLI) | payer OTHER, SELFPAY ==
--- NOTE | 2023-11-14 | CA_ITS ---
APPROVED REPORT EXAM: Comprehensive 2D, Doppler, and color-flow Echocardiogram [facility] Deputy Clerk: ARIANA Tomlinson, RVS Ht: 5 ft 11 in Wt: 192lbs BSA: 2.07 BP: 123/75 mmHg Indications: syncope,cp 2D Dimensions Left Atrium 2.68 cm LA Volume 48.30 mL LA Volume Index 22.80 mL/m2 (M/F) 16-34 M-Mode Dimensions RVDd 2.95 cm (0.9-2.6) LA Diam 3.23 cm (1.9-4.0) LVDd 4.56 cm (3.5-5.7) LVDs 2.51 cm (3.5-5.7) IVSd 0.80 cm (0.6-1.1) PWd 0.91 cm (0.6-1.1) EF (Teich) 76.40% EPSs 0.77 cm FS 45.00% EDV (Teich) 95.40 mL TAPSE 2.42 (<1.7) ESV (Teich) 22.50 mL LV Diastology E Decel Time 203 (160-240 msec) E/A Ratio 1.29 MED A' 9.90 cm/s LAT A' 10.00 cm/s Aortic Valve ЮЛИЯ Index 0.79 cm2/m2 AoV Peak Yemi. 165.0 (50-130 cm/s) AO Peak GR. 10.90 mmHg AO Mean GR. 5.40 (<5 mmHg) AO VTI 29.9 (18-25 cm) ЮЛИЯ (VTI) 1.68 (2.5-4.5 cm2) Mitral Valve MV A Velocity 74.0 (40-130 cm/s) E/A Ratio 1.29 Pulmonary Valve PV Peak Velocity 112.0 (50-150 cm/s) Tricuspid Valve TR P. Velocity 242.00 cm/s RAP Estimate 10.00 mmHg RVSP 33.40 mmHg Left Ventricle The left ventricle is normal size. The left ventricular systolic function is normal. The left ventricular ejection fraction is within the normal range. There is normal left ventricular wall thickness. There is normal LV segmental wall motion. The left ventricular diastolic function is normal. LVEF is 55%. Right Ventricle The right ventricle is normal size. The right ventricular systolic function is normal. Atria The left atrium size is normal. The right atrium size is normal. There is no Doppler evidence of interatrial shunt. Aortic Valve The aortic valve opens well. There is no aortic valvular stenosis. No aortic regurgitation is present. Mitral Valve The mitral valve is normal in structure. No evidence of mitral valve stenosis. There is no mitral valve regurgitation noted. Tricuspid Valve The tricuspid valve leaflets are thin and pliable. Mild tricuspid regurgitation. RVSP is 20-25 mmHg. Pulmonic Valve The pulmonary valve is normal in structure. Trace pulmonic regurgitation. Great Vessels The aortic root is normal in size. The ascending aorta is normal in size. IVC is normal in size and collapses >50% with inspiration. Pericardium There is no pericardial effusion. Other Information Study Quality: Adequate Conclusion Normal biventricular systolic function. Mild TR. Electronically signed by : Monique Parsons MD 11/18/2023 11:15:40
== END 2023-11-14 23:59 ==
LOC: RT 08:37
PROVIDERS: PCP Internal Medicine Adolescent Medicine; Visit Provider Physician Assistant
DX: R55 Syncope and collapse (principal); Z98.2 Presence of cerebrospinal fluid drainage device
CPT/HCPCS: 93306

== ENCOUNTER 2025-01-19 19:00 | Emergency (ER) | payer MEDICARE, OTHER, SELFPAY ==
--- NOTE | 2025-01-19 19:08 | HMH.EDGENADL ---
Discharge Plan Disposition Patient Disposition: Home, Self-Care Condition: Good Prescriptions Prescriptions: No Action No Known Home Medications Referrals Follow up/Referrals: Brandan Smith MD [Primary Care Provider] - See instructions Activity Restrictions/Add. Instructions Additional Instructions/Restrictions: Please keep your wound clean dry and covered if you need to. You may wash as normal but pat the area dry. I have provided you a splint to help protect the area. If you notice any redness drainage increasing pain return to the ER. Clinical Impressions Clinical Impression: Laceration of right thumb Qualifiers: Encounter type: initial encounter Damage to nail status: without damage Foreign body presence: without foreign body Qualified Code(s): S61.011A - Laceration without foreign body of right thumb without damage to nail, initial encounter Instructions Patient Instructions: DI for Skin Abscess Print Language Print Language: [place] Discharge ED Provider: Khris Gant General Adult HPI <SANTOSH Lau - Last Filed: 01/19/25 19:40> General Chief complaint: Skin/Abscess/Foreign Body Stated complaint: AO 01/19/25 1800 laceration right thumb Time Seen by Provider: 01/19/25 19:08 History of Present Illness HPI narrative: Patient presents for evaluation of right thumb injury. 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 He has no loss of motor or sensory he is neurovascularly intact. Related Data Home Medications ?Medication ?Instructions ?Recorded ?Confirmed No Known Home Medications 10/29/23 12/05/23 Allergies Allergy/AdvReac Type Severity Reaction Status Date / Time No Known Allergies Allergy Verified 12/05/23 14:21 PFS <SANTOSH Lau - Last Filed: 01/19/25 19:40> [facility] Disclaimer: The information contained in this section may have been updated after the patient was seen, as this information can be updated by other users. Surgical History H/O ventricular shunt Family History Other No significant family history Social History Smoking Status: Current every day smoker tobacco type: cigarettes alcohol intake: never substance use type: denies use current occupational status: employed Travel in the last 8 weeks?: None household members: none housing: apartment Have you lived/traveled outside [place] in past 30 days?: No Contact w/someone who lives/traveled outside [place] past 30 days?: No Exposure to someone with infectious disease in past 14 days?: No Do you have a fever (greater than 100.4 F or 38 C)?: No Have you tested positive for COVID-19?: No Exposed to someone with COVID-19 in past 14 days?: No Do you have a sore throat?: No Do you have a cough?: No Do you have any weakness?: No Do you have any diarrhea?: No Are you experiencing any unusual bleeding?: Yes Do you have any muscle aches/pain?: No Do you have any abdominal pain?: No Are you experiencing loss of taste or smell?: No Other Medical History Have you received the Pneumonia Vaccine: No <SANTOSH Lau - Last Filed: 01/19/25 19:40> ROS Obtained: Yes Systems reviewed as appropriate & no additional complaints except as documented Physical Exam <SANTOSH Lau - Last Filed: 01/19/25 19:40> General General appearance: alert Respiratory Respiratory exam: Present normal lung sounds bilaterally Cardiovascular Cardiovascular exam: Present regular rate Neurological Exam Neurological exam: Present alert and oriented X3 Medical Decision Making <SANTOSH Lau - Last Filed: 01/19/25 19:40> Medical Records Screening: Per USPSTF and CDC recommendations, given the prevalence of disease in our region, it is our hospital?s policy to screen for HIV and viral Hepatitis for all patients aged 18 and over and those with ongoing risk factors. Jose Inquiry Pt receiving controlled substance: No Vital Signs: 01/19/25 19:15 01/19/25 19:46 Temperature 98.1 F 98 F Temperature Source Oral Oral Pulse Rate 91 H Pulse Rate [Right] 93 H Respiratory Rate 20 18 Blood Pressure 135/91 H Blood Pressure [Right Arm] 130/93 H Blood Pressure Mean [Right Arm] 105 Blood Pressure Source Automatic Cuff 02 Sat by Pulse Oximetry 97 Oxygen Delivery Method Room Air Room Air Orders (Tests/Meds): ED MEDICATIONS Discontinued Medications Generic Name Dose Route Start Last Admin Trade Name Freq PRN Reason Stop Dose Admin Tetanus/Reduced Diphtheria/Acell Pertussis 0.5 ml 01/19/25 19:32 01/19/25 19:40 Tet/Diphth/Pert-Adult 0.5ml Syringe IM 01/19/25 19:33 0.5 ml .ONCE ONE Administration Medical Decision Narrative: In summary patient is a 34-year-old male who presents to the emergency department for evaluation of right thumb pad laceration. Patient is hemodynamically stable upon arrival, afebrile. Physical exam is remarkable for a linear 2 cm laceration to the pad of his right thumb. He is neurovascularly intact with full range of motion.. Differential diagnosis includes simple versus complex laceration however upon physical exam it is evidence that this is a very superficial and routine laceration thus alternative diagnoses were not pursued. Initial workup was considered with imaging however patient is neurovascular intact and no deep structures are involved thus deferred. Initial interventions include Tdap. Wound is linear and contained entirely within the pad of the distal right thumb. Is a very amenable to Steri-Strips and glue thus wound was cleaned irrigated and then repaired with Steri-Strips and Dermabond. Patient given Tdap prior to discharge and strict return precautions. <Khris Gant MD - Last Filed: 01/19/25 22:02> Vital Signs: 01/19/25 19:15 01/19/25 19:46 Temperature 98.1 F 98 F Temperature Source Oral Oral Pulse Rate 91 H Pulse Rate [Right] 93 H Respiratory Rate 20 18 Blood Pressure 135/91 H Blood Pressure [Right Arm] 130/93 H Blood Pressure Mean [Right Arm] 105 Blood Pressure Source Automatic Cuff 02 Sat by Pulse Oximetry 97 Oxygen Delivery Method Room Air Room Air Orders (Tests/Meds): ED MEDICATIONS Discontinued Medications Generic Name Dose Route Start Last Admin Trade Name Freq PRN Reason Stop Dose Admin Tetanus/Reduced Diphtheria/Acell Pertussis 0.5 ml 01/19/25 19:32 01/19/25 19:40 Tet/Diphth/Pert-Adult 0.5ml Syringe IM 01/19/25 19:33 0.5 ml .ONCE ONE Administration Medical Decision Narrative: In summary patient is a 34-year-old male who presents to the emergency department for evaluation of right thumb pad laceration. Patient is hemodynamically stable upon arrival, afebrile. Physical exam is remarkable for a linear 2 cm laceration to the pad of his right thumb. He is neurovascularly intact with full range of motion.. Differential diagnosis includes simple versus complex laceration however upon physical exam it is evidence that this is a very superficial and routine laceration thus alternative diagnoses were not pursued. Initial workup was considered with imaging however patient is neurovascular intact and no deep structures are involved thus deferred. Initial interventions include Tdap. Wound is linear and contained entirely within the pad of the distal right thumb. Is a very amenable to Steri-Strips and glue thus wound was cleaned irrigated and then repaired with Steri-Strips and Dermabond. Patient given Tdap prior to discharge and strict return precautions. I was consulted by the MARCO, and we discussed the complexity of the problems being addressed. I approved the treatment and management plan for this patient's care in the Emergency Department, thus performing a substantive portion of the medical decision making. Khris Gant MD Procedures <SANTOSH Lau - Last Filed: 01/19/25 19:40> Laceration Laceration 1: Site: thumb Side (If applicable): right Size (cm): 2 Description: linear Pre-repair: wound explored, irrigated extensively and deep structures intact Skin layer closed with: Dermabond Critical Care <SANTOSH Lau - Last Filed: 01/19/25 19:40> Critical Care Time Critical Care Time: No
[2025-01-19 19:15] VITALS: BP 130/93; PULSE 93; RESP 20; TEMP 36.7; O2SAT 97; BMI 25.8
[2025-01-19] MEDS: TET/DIPHTH/PERT-ADULT 0.5ML SYRINGE 0.5 ML IM (19:40)
[2025-01-19 19:46] VITALS: BP 135/91; PULSE 91; RESP 18; TEMP 36.6; O2SAT 98
== END 2025-01-19 19:47 | disposition home or self-care (01) ==
PROVIDERS: Emergency Provider Emergency Medicine; PCP Internal Medicine Adolescent Medicine
DX: S61.011A Laceration without foreign body of right thumb without damage to nail, initial encounter (principal); W26.8XXA Contact with other sharp object(s), not elsewhere classified, initial encounter
CPT/HCPCS: 12001; 90471; 90715; 99283